=== PATIENT | male | born 1955 | race Caucasian/White ===

== ENCOUNTER 2022-04-24 07:38 | Day surgery (SDC) | payer OTHER ==
[~2022-04-24] VITALS: Ht 175.3 cm; Wt 74.8 kg
[2022-04-24] MEDS ORDERED: GASTROGRAFIN 120 ML ONE (08:35)
[2022-04-24 10:54] VITALS: BP_SYST 121
== END 2022-04-24 09:30 | disposition home or self-care (01) ==
LOC: SDS 07:38 → SMU 07:39 → SDS 09:30
PROVIDERS: ATTEND Internal Medicine Gastroenterology
DX: R13.12 Dysphagia, oropharyngeal phase (principal); E11.9 Type 2 diabetes mellitus without complications; Z79.4 Long term (current) use of insulin; Z99.2 Dependence on renal dialysis; K21.9 Gastro-esophageal reflux disease without esophagitis; Z86.73 Personal history of transient ischemic attack (TIA), and cerebral infarction without residual deficits; I25.2 Old myocardial infarction; I10 Essential (primary) hypertension; Z95.1 Presence of aortocoronary bypass graft; E66.9 Obesity, unspecified; Z68.24 Body mass index [BMI] 24.0-24.9, adult
CPT/HCPCS: 36415; 43762; 82962; 74240; U0003; Q9963